=== PATIENT | male | born 1960 | race Caucasian/White ===

== ENCOUNTER 2019-10-09 17:52 | Emergency (ER) | payer OTHER ==
[~2019-10-09] VITALS: Ht 180.3 cm; Wt 90.7 kg
[~2019-10-09 17:52] MED LIST: ACETAMINOPHEN325 M1 PO; ADVIL200 MG PO; ALLEGRA60 MG PO; BIAXIN; COZAAR 25 MG TA25 M2 PO; FLEXERIL PO; HYDROCODON-ACE1 EAC7 PO; HYDROCODON-ACE1 EACH PO; KEFLEX500 M1 PO; LOSARTAN-HCTZ1 EACH PO; PERCOCET 5-3251 EACH PO
[2019-10-09 18:50] VITALS: BP 138/68
== END 2019-10-09 18:51 | disposition home or self-care (01) ==
LOC: M.ERS 17:52
DX: S61.412A Laceration without foreign body of left hand, initial encounter (principal); I10 Essential (primary) hypertension; Z90.49 Acquired absence of other specified parts of digestive tract; Z88.1 Allergy status to other antibiotic agents; Z88.8 Allergy status to other drugs, medicaments and biological substances; W26.0XXA Contact with knife, initial encounter; Y93.89 Activity, other specified; Y92.89 Other specified places as the place of occurrence of the external cause; Y99.8 Other external cause status